=== PATIENT | male | born 1985 | race African-American/Black ===

== ENCOUNTER 2021-02-20 11:15 | Inpatient (IN) | payer OTHER ==
[~2021-02-20] VITALS: Ht 167.6 cm; Wt 97.1 kg
[2021-02-20] MEDS ORDERED: ALBUTEROL (0.083%) 2.5MG/3ML NEB HHN STA (12:26)
[2021-02-20] MEDS ORDERED: IPRATROPIUM BROMIDE (0.02%) 0.5MG/2.5ML NEB HHN STA (12:26)
[2021-02-20 13:14] LABS: BASOPHILS % 0.4 % (0.0-2.0); EOSINOPHILS % 0.9 % (0.0-5.0); HEMATOCRIT. 37.6 % (42.0-52.0); HEMOGLOBIN. 12.9 g/dL (14.0-18.0); LYMPHOCYTES % 21.2 % (20.0-50.0); MEAN CORPUSCULAR HEMOGLOBIN 26.9 pg (28.0-32.0); MEAN CORPUSCULAR VOLUME 78.1 fL (80.0-94.0); MEAN PLATELET VOLUME 9.7 fl (7.4-10.4); MONOCYTES % 11.7 % (2.0-8.0); NEUTROPHILS % 65.8 % (40.0-76.0); PLATELET 146 x1000/uL (130-400); RED BLOOD CELL COUNT 4.81 mill/uL (4.7-6.1); RED CELL DISTRIBUTION WIDTH 14.2 % (11.6-14.6)
[2021-02-20 13:20] LABS: CHLORIDE 103 mEq/L (98-107)
[2021-02-20 13:25] LABS: D-DIMER 0.81 mg/L FEU (<0.50); PROTHROMBIN TIME 10.6 sec (9.6-11.0)
[2021-02-20] MEDS ORDERED: MORPHINE SULFATE 2 MG/ML CPJ (NOT FOR IM USE) IV ONE (14:00)
[2021-02-20] MEDS ORDERED: CEFTRIAXONE 1 G PREMIX 50 ML IV ONE (14:30)
[2021-02-20] MEDS ORDERED: AZITHROMYCIN 500 MG in DEXT 5% WATER 250 ML IV ONE (14:30)
[2021-02-20] MEDS ORDERED: ENOXAPARIN 40MG/0.4ML SYR SUBCUT SCH (16:15)
[2021-02-20] MEDS ORDERED: DOCUSATE SODIUM 100MG CAPSULE PO PRN (16:15)
[2021-02-20] MEDS ORDERED: CLONIDINE 0.1MG TABLET PO PRN (16:15)
[2021-02-20] MEDS ORDERED: MORPHINE SULFATE 2 MG/ML CPJ (NOT FOR IM USE) IV PRN (16:15)
[2021-02-20] MEDS ORDERED: ACETAMINOPHEN 325MG TABLET PO PRN (16:15)
[2021-02-20] MEDS ORDERED: HYDRALAZINE 20MG/ML VIAL IV PRN (16:15)
[2021-02-20] MEDS ORDERED: ALBUTEROL 6.7GM HFA INHALER ORI PRN (16:15)
[2021-02-20] MEDS ORDERED: ONDANSETRON HCL 4MG/2ML INJ IV PRN (16:15)
[2021-02-20] MEDS ORDERED: LORAZEPAM 2MG/ML CPJ IV PRN (16:15)
[2021-02-20] MEDS ORDERED: DIPHENHYDRAMINE 50MG/ML VIAL IV PRN (16:15)
[2021-02-20] MEDS ORDERED: MAGNESIUM/ALUMINUM HYDROXIDE/SIMETHICONE 30ML UDC PO PRN (16:15)
[2021-02-20] MEDS: GUAIFENESIN 200MG/10ML SUGAR FREE UDC PO PRN (16:18)
[2021-02-20] MEDS: ENOXAPARIN 30MG/0.3ML SYR SUBCUT SCH (20:31)
[2021-02-20] MEDS: SODIUM CHLORIDE 0.9% INJ 3ML FLUSH IVF SCH (22:04)
[2021-02-20] MEDS ORDERED: IOHEXOL-350 100 ML BOTTLE ONE (23:26)
[2021-02-21] MEDS: SODIUM CHLORIDE 0.9% INJ 3ML FLUSH IVF SCH ×3 (05:44→21:52)
[2021-02-21 06:00] LABS: BASOPHILS % 0.5 % (0.0-2.0); EOSINOPHILS % 3.8 % (0.0-5.0); HEMATOCRIT. 37.1 % (42.0-52.0); HEMOGLOBIN. 12.7 g/dL (14.0-18.0); LYMPHOCYTES % 27.2 % (20.0-50.0); MEAN CORPUSCULAR HEMOGLOBIN 26.3 pg (28.0-32.0); MEAN CORPUSCULAR VOLUME 77.1 fL (80.0-94.0); MEAN PLATELET VOLUME 8.7 fl (7.4-10.4); MONOCYTES % 14.6 % (2.0-8.0); NEUTROPHILS % 53.9 % (40.0-76.0); PLATELET 157 x1000/uL (130-400); RED CELL DISTRIBUTION WIDTH 14.2 % (11.6-14.6)
[2021-02-21 06:10] LABS: CHLORIDE 104 mEq/L (98-107)
[2021-02-21] MEDS ORDERED: NALOXONE HCL 0.4MG/ML VIAL IV PRN (07:30)
[2021-02-21 08:20] VITALS: BP_SYST 131; BP_SYST 146; BP_DIAS 68
[2021-02-21] MEDS: ENOXAPARIN 30MG/0.3ML SYR SUBCUT SCH (10:25)
[2021-02-21 12:00] VITALS: BP 119/72
[2021-02-21] MEDS: AZITHROMYCIN 500 MG in DEXT 5% WATER 250 ML IV SCH (12:24)
[2021-02-21] MEDS ORDERED: GUAIFENESIN-DM 200MG-20MG/10ML UDC PO PRN (13:15)
[2021-02-21] MEDS: BENZONATATE 100MG CAPSULE PO SCH ×2 (13:36→21:52)
[2021-02-21] MEDS: CEFTRIAXONE 1,000 MG in DEXTROSE 5% WATER 50 ML IV SCH (13:37)
[2021-02-21] MEDS ORDERED: CEFTRIAXONE 1 G PREMIX 50 ML IV SCH (15:00)
[2021-02-21] MEDS ORDERED: AZITHROMYCIN 500 MG in DEXT 5% WATER 250 ML IV SCH (15:00)
[2021-02-21 16:00] VITALS: BP 123/74
[2021-02-21 20:00] VITALS: BP 121/67
[2021-02-22] VITALS: BP 115/74
[2021-02-22 04:00] VITALS: BP 124/63
[2021-02-22] MEDS: BENZONATATE 100MG CAPSULE PO SCH ×2 (06:31→13:03)
[2021-02-22] MEDS: SODIUM CHLORIDE 0.9% INJ 3ML FLUSH IVF SCH ×2 (06:31→13:04)
[2021-02-22 08:00] VITALS: BP 114/75
[2021-02-22 10:43] LABS: BASOPHILS % 0.6 % (0.0-2.0); EOSINOPHILS % 6.6 % (0.0-5.0); HEMATOCRIT. 38.2 % (42.0-52.0); HEMOGLOBIN. 13.5 g/dL (14.0-18.0); LYMPHOCYTES % 27.2 % (20.0-50.0); MEAN CORPUSCULAR HEMOGLOBIN 27.1 pg (28.0-32.0); MEAN CORPUSCULAR VOLUME 76.6 fL (80.0-94.0); MEAN PLATELET VOLUME 9.3 fl (7.4-10.4); MONOCYTES % 13.2 % (2.0-8.0); NEUTROPHILS % 52.4 % (40.0-76.0); PLATELET 205 x1000/uL (130-400); RED BLOOD CELL COUNT 4.99 mill/uL (4.7-6.1); RED CELL DISTRIBUTION WIDTH 13.9 % (11.6-14.6)
[2021-02-22 10:45] LABS: CHLORIDE 105 mEq/L (98-107)
[2021-02-22 12:00] VITALS: BP 142/63
[2021-02-22] MEDS: GUAIFENESIN 200MG/10ML SUGAR FREE UDC PO PRN (13:03)
[2021-02-22] MEDS: AZITHROMYCIN 500 MG in DEXT 5% WATER 250 ML IV SCH (13:03)
[2021-02-22] MEDS: CEFTRIAXONE 1,000 MG in DEXTROSE 5% WATER 50 ML IV SCH (13:03)
[2021-02-22 16:00] VITALS: BP 125/71
[2021-02-22 20:00] VITALS: BP 128/74
[2021-02-23] VITALS (7 sets, daily range): BP systolic 124–149; BP diastolic 66–89
[2021-02-23] MEDS: BENZONATATE 100MG CAPSULE PO SCH ×4 (01:16→20:21)
[2021-02-23] MEDS: SODIUM CHLORIDE 0.9% INJ 3ML FLUSH IVF SCH ×4 (01:16→20:21)
[2021-02-23] MEDS: CEFTRIAXONE 1,000 MG in DEXTROSE 5% WATER 50 ML IV SCH (13:36)
[2021-02-23] MEDS: AZITHROMYCIN 500 MG TABLET PO SCH (13:36)
[2021-02-23] MEDS: HYDROCODONE/ACETAMINOPHEN 5/325MG TABLET PO PRN (20:42)
[2021-02-24] VITALS: BP 125/72
[2021-02-24 04:00] VITALS: BP 143/91
[2021-02-24] MEDS: BENZONATATE 100MG CAPSULE PO SCH ×3 (05:12→21:16)
[2021-02-24] MEDS: SODIUM CHLORIDE 0.9% INJ 3ML FLUSH IVF SCH ×3 (05:12→21:16)
[2021-02-24 08:00] VITALS: BP 101/54
[2021-02-24] MEDS: HYDROCODONE/ACETAMINOPHEN 5/325MG TABLET PO PRN (09:23)
[2021-02-24 12:00] VITALS: BP 121/78
[2021-02-24] MEDS: AZITHROMYCIN 500 MG TABLET PO SCH (12:14)
[2021-02-24] MEDS: CEFTRIAXONE 1,000 MG in DEXTROSE 5% WATER 50 ML IV SCH (12:18)
[2021-02-24 16:00] VITALS: BP 132/72
[2021-02-24 20:00] VITALS: BP 134/78
[2021-02-25] VITALS: BP 121/79
[2021-02-25 04:00] VITALS: BP 105/79
[2021-02-25] MEDS: SODIUM CHLORIDE 0.9% INJ 3ML FLUSH IVF SCH ×3 (06:14→21:00)
[2021-02-25] MEDS: BENZONATATE 100MG CAPSULE PO SCH ×3 (06:14→21:00)
[2021-02-25 08:00] VITALS: BP 120/72
[2021-02-25 12:00] VITALS: BP 128/67
[2021-02-25] MEDS: CEFTRIAXONE 1,000 MG in DEXTROSE 5% WATER 50 ML IV SCH (13:13)
[2021-02-25 16:00] VITALS: BP 97/55
[2021-02-25 20:00] VITALS: BP 107/50
[2021-02-26] VITALS: BP 100/57
[2021-02-26 04:00] VITALS: BP 113/80
[2021-02-26] MEDS: SODIUM CHLORIDE 0.9% INJ 3ML FLUSH IVF SCH ×2 (06:20→13:15)
[2021-02-26] MEDS: BENZONATATE 100MG CAPSULE PO SCH ×2 (06:20→14:37)
[2021-02-26 08:00] VITALS: BP 97/49
[2021-02-26 12:00] VITALS: BP 128/82
[2021-02-26 16:00] VITALS: BP 112/70
[2021-02-26 18:14] VITALS: BP 112/70
== END 2021-02-26 20:01 | disposition home or self-care (01) | DRG 720 ==
LOC: ER 11:15 → MICUSO 16:00 → EDBEDREQTM 16:07 → EDBEDREQ 16:07 → 7WST 02-21 07:17 → 7EST 02-26 08:59
PROVIDERS: ADMIT Internal Medicine; ATTEND Internal Medicine
DX: A41.89 Other specified sepsis (principal); J96.00 Acute respiratory failure, unspecified whether with hypoxia or hypercapnia; J12.82 Pneumonia due to coronavirus disease 2019; U07.1 COVID-19; R04.2 Hemoptysis; F41.9 Anxiety disorder, unspecified
CPT/HCPCS: 36415; 71045; 71275; 80048; 80053; 82728; 83605; 83615; 83880; 84484; 85025; 85379; 86140; 87426; 93005; 94640; 99291; C9803; J0456; J0696; J1650; J2270; J7060; Q9967; U0003; U0005